=== PATIENT | female | born 1985 | race Caucasian/White ===

== ENCOUNTER 2019-01-03 19:30 | Inpatient (IN) | payer OTHER, SELFPAY ==
[~2019-01-03 19:30] MED LIST: Bupivacaine 0.25% HCL 30 ML VIAL ONE; Lidocaine 2% MPF 10 ML AMP (For Epidural Use) ONE
[2019-01-04] MEDS ORDERED: Carboprost 250 MCG/ML AMP IM PRN (00:56)
[2019-01-04] MEDS ORDERED: Ondansetron PF 4 MG/2 ML Vial IVP PRN ×3 (00:56→20:59)
[2019-01-04] MEDS ORDERED: Ibuprofen 800 MG TAB PO PRN (00:56)
[2019-01-04] MEDS ORDERED: NS / Oxytocin 40 units/1000ml 1,000 ML IV PRN (00:56)
[2019-01-04] MEDS ORDERED: Butorphanol Tartrate 1 MG/ML VIAL SLOW IVP PRN (00:56)
[2019-01-04] MEDS ORDERED: Promethazine HCl 25 MG/ML VIAL IM PRN ×3 (00:56→20:59)
[2019-01-04] MEDS ORDERED: Misoprostol 200 MCG TAB PR PRN (00:56)
[2019-01-04] MEDS ORDERED: hydrALAZINE 20 MG/ML VIAL SLOW IVP PRN (00:56)
[2019-01-04] MEDS ORDERED: HYDROcodone/Acetaminophen 5/325 mg Tablet PO PRN (00:56)
[2019-01-04] MEDS ORDERED: Lidocaine 1% (PF) 30 ML VIAL SC PRN (00:56)
[2019-01-04] MEDS ORDERED: Diphenoxylate HCl/Atropine Tablet PO PRN (00:56)
[2019-01-04] MEDS ORDERED: Methylergonovine 0.2 MG/ML VIAL IM PRN (00:56)
[2019-01-04] MEDS ORDERED: Acetaminophen/Codeine 30-300mg Tablet PO PRN (00:56)
[2019-01-04] MEDS ORDERED: NS w/ Oxytocin 10 units 500 ML IV SCH ×2 (01:15)
[2019-01-04] MEDS: Lactated Ringer's 1,000 ML IV SCH ×3 (01:55→17:23)
[2019-01-04 02:26] VITALS: BMI 51.7
[2019-01-04 02:32] LABS: Hemoglobin 12.5 g/dL (12.0-16.0); Mean Corpuscular HGB CONC 35.6 g/dL (32.0-36.0); Mean Corpuscular Hemoglobin 31.1 pg (27.0-31.0); Mean Corpuscular Volume 87.1 fL (78.0-98.0); Mean Platelet Volume 8.1 fL (7.4-10.4); Platelet Count 321 thou/uL (130-400); RBC Distribution Width 11.2 % (11.5-14.5); Red Blood Cell (RBC) Count 4.03 mill/uL (4.20-5.40)
[2019-01-04] MEDS: Misoprostol 100 MCG TAB PO SCH ×2 (02:32→07:45)
[2019-01-04 03:11] LABS: Hep B Surf Ag Non-Reactive S/CO (NonReactive)
[2019-01-04 04:29] LABS: Syphilis Antibody Nonreactive (Nonreactive); Syphilis Antibody Index 0.05 S/CO (<1.00 Non-Reactive)
[2019-01-04] MEDS ORDERED: Fentanyl 4 mcg/Bup 0.1% Cadd 100 ML ONE (14:30)
[2019-01-04] MEDS ORDERED: Fentanyl 100 MCG/2 ML VIAL ONE (14:42)
[2019-01-04] MEDS ORDERED: Fentanyl 100 MCG/2 ML VIAL EPIDURAL ONE (15:24)
[2019-01-04] MEDS ORDERED: Naloxone HCl 0.4 mg/ml Vial IVP PRN ×4 (15:44→20:59)
[2019-01-04] MEDS ORDERED: Lactated Ringer's 500 ML IV PRN (15:44)
[2019-01-04] MEDS ORDERED: ePHEDrine/0.9% NaCl/PF SYRINGE 50 mg/10 ml SLOW IVP PRN (15:44)
[2019-01-04] MEDS ORDERED: Acetaminophen 325 MG TAB PO PRN (15:44)
[2019-01-04] MEDS ORDERED: diphenhydrAMINE 50 MG/ML VIAL IVP PRN ×2 (15:44→20:59)
[2019-01-04] MEDS ORDERED: Fentanyl 4 mcg/Bupivacaine 0.1% Cassette 100 ML EPIDURAL SCH (15:45)
[2019-01-04] MEDS ORDERED: Communication Order-Pharmacy FS SCH ×2 (15:45→21:00)
[2019-01-04] MEDS ORDERED: Lidocaine 2% 10 ML INJ ONE (20:36)
[2019-01-04] MEDS ORDERED: Oxytocin 10 UNITS/ML VIAL ONE (20:41)
[2019-01-04] MEDS ORDERED: MORPHINE 5 MG/10 ML PF VIAL ONE (20:49)
[2019-01-04] MEDS ORDERED: Dexamethasone 4 mg/ml Vial ONE (20:50)
[2019-01-04] MEDS ORDERED: Ondansetron PF 4 MG/2 ML Vial ONE (20:50)
[2019-01-04] MEDS ORDERED: Ketorolac Tromethamine 30 MG/ML VIAL ONE (20:50)
[2019-01-04 20:55] LABS: Actual Bicarbonate (HCO3v) 20 mEq/L (22-28); Base Excess -5.8 mEq/L (-2.0 to +3.0); pH (Cord, venous) 7.31 (7.32-7.43)
[2019-01-04 20:57] LABS: Actual Bicarbonate (HCO3a) 21.7 mEq/L (22-28); Base Excess (BEa) -8.6 mEq/L (-2.0 to +3.0)
[2019-01-04] MEDS ORDERED: Ketorolac Tromethamine 30 MG/ML VIAL IVP PRN (20:59)
[2019-01-04] MEDS ORDERED: Promethazine HCl 25 MG SUPP PR PRN (20:59)
[2019-01-04] MEDS ORDERED: Meperidine HCl/PF 25 MG/ML VIAL SLOW IVP PRN (20:59)
[2019-01-04] MEDS ORDERED: L&D-Morphine 4 MG/ML VIAL SLOW IVP PRN (20:59)
[2019-01-04] MEDS ORDERED: Naloxone HCl 0.4 mg/ml Vial IV PRN (20:59)
[2019-01-04] MEDS ORDERED: Ondansetron HCl/PF 4 MG/2 ML Vial IVP PRN (20:59)
[2019-01-04] MEDS ORDERED: HYDROmorphone 2 MG/ML VIAL SLOW IVP PRN (20:59)
--- NOTE | 2019-01-04 21:02 | PDOC.EVN ---
Event Note - Event Note Event Note: To room for evaluation of heart rate deceleration. Patient noted to be 10 /100/+2 in incomplete breech presentation. Patient counseled on proceeding with breech vaginal delivery vs emergent section. Upon arrival to OR, fetus at +4 station and the decision was made to proceed with breech vaginal delivery. See delivery note for full details.
--- NOTE | 2019-01-04 21:04 | PDOC.OPDEL ---
OB Operative/Delivery Note Delivery Dr/Surgeon: Yasir Assist: Jose Francisco Pre-Delivery Diagnosis: medically indicated induction Procedure/Post Delivery Dx: other (Breech Vaginal Delivery) Weeks gestation: 37 Anesthesia: epidural - Findings A Sex: male Weight: 6 lb 1 oz - 1 min: 6 - 5 min: 8 - Additional Findings/Plan Placenta delivered: spontaneous Repaired Obstetrical Laceration: 2nd degree Estimated blood loss: 100 Compilations/Other Findings: Upon arrival to OR, fetus noted to be +4 station and delivery imminent. Decision was made to proceed with assisted breech vaginal delivery. With maternal expulsive efforts, breech was delivered, followed by the lower extremities after medial sweep of each leg. Maternal expulsive efforts continued until the axillae were visible. Dr. Felton assisted in supporting the body and the infant was rotated to 90 degrees. The right arm was swept out of the vagina without difficulty. The was then rotated 180 degrees and the left arm was swept out of the vagina without difficulty. The was rotated 90 degrees with the back anterior and the head was flexed using the Mauriceau maneuver and delivered. The spontaneously cried and the nose and mouth were suctioned with bulb suction. The cord was clamped and cut and the infant was handed to the awaiting NICU team. Cord gases were sent. Mom and baby doing well. Post delivery plan: routine recovery
[2019-01-05] MEDS ORDERED: Promethazine HCl 25 MG/ML VIAL IM PRN (00:01)
[2019-01-05] MEDS ORDERED: Adacel (T-DAP) 0.5 ML SYRINGE IM ONE (00:01)
[2019-01-05] MEDS ORDERED: Milk Of Magnesia 30 ML UDCUP PO PRN (00:01)
[2019-01-05] MEDS ORDERED: Bisacodyl 10 MG SUPP PR PRN (00:01)
[2019-01-05] MEDS ORDERED: NS / Oxytocin 40 units/1000ml 1,000 ML IV SCH (00:01)
[2019-01-05] MEDS ORDERED: diphenhydrAMINE 25 MG CAP PO PRN (00:01)
[2019-01-05] MEDS ORDERED: Benzocaine-Menthol 82.5 ML CAN TOP PRN (00:01)
[2019-01-05] MEDS ORDERED: HYDROcodone/Acetaminophen 5/325 mg Tablet PO PRN (00:01)
[2019-01-05] MEDS ORDERED: hydrALAZINE 20 MG/ML VIAL SLOW IVP PRN (00:01)
[2019-01-05] MEDS ORDERED: Ondansetron PF 4 MG/2 ML Vial IVP PRN (00:01)
[2019-01-05] MEDS: Misoprostol 100 MCG TAB PO SCH (00:15)
[2019-01-05] MEDS: Ibuprofen 800 MG TAB PO SCH ×3 (00:15→18:17)
[2019-01-05 06:45] LABS: Hemoglobin 11.8 g/dL (12.0-16.0); Mean Corpuscular HGB CONC 34.7 g/dL (32.0-36.0); Mean Corpuscular Hemoglobin 30.6 pg (27.0-31.0); Mean Corpuscular Volume 88.2 fL (78.0-98.0); Mean Platelet Volume 8.1 fL (7.4-10.4); Platelet Count 296 thou/uL (130-400); RBC Distribution Width 10.9 % (11.5-14.5); Red Blood Cell (RBC) Count 3.85 mill/uL (4.20-5.40); White Blood Cell (WBC) Count 15.2 thou/uL (4.8-10.8)
[2019-01-05] MEDS: Ferrous Sulfate 325 MG TAB PO SCH ×2 (09:48→18:17)
[2019-01-05] MEDS: Prenatal Vitamin 1 TAB PO SCH (09:49)
[2019-01-05] MEDS: Docusate Calcium (SURFAK) 240 MG CAP PO SCH ×2 (09:49→21:25)
[2019-01-06] MEDS: Ibuprofen 800 MG TAB PO SCH ×3 (00:09→16:00)
[2019-01-06] MEDS: HYDROcodone/Acetaminophen 5/325 mg Tablet PO PRN ×2 (05:47→11:27)
[2019-01-06] MEDS ORDERED: Ondansetron ODT 4 MG TAB PO PRN (06:06)
[2019-01-06] MEDS: Prenatal Vitamin 1 TAB PO SCH (08:28)
[2019-01-06] MEDS: Docusate Calcium (SURFAK) 240 MG CAP PO SCH (08:29)
[2019-01-06] MEDS: Ferrous Sulfate 325 MG TAB PO SCH ×2 (08:32→18:36)
[2019-01-06 16:14] VITALS: BP 97/57; TEMP 98.7
== END 2019-01-06 19:10 | disposition home or self-care (01) | DRG 807 ==
LOC: L&D 01-04 00:39 → 3SE 01-05 10:40
PROVIDERS: ADMIT Family Medicine; ATTEND Family Medicine
PROC: 10E0XZZ Delivery of Products of Conception, External Approach (ICD-10-PCS; principal; 2019-01-04)
PROC: 0KQM0ZZ Repair Perineum Muscle, Open Approach (ICD-10-PCS; 2019-01-04)
PROC: 3E033VJ Introduction of Other Hormone into Peripheral Vein, Percutaneous Approach (ICD-10-PCS; 2019-01-04)
DX: O32.1XX0 Maternal care for breech presentation, not applicable or unspecified (principal); Z37.0 Single live birth; O76 Abnormality in fetal heart rate and rhythm complicating labor and delivery; O70.1 Second degree perineal laceration during delivery; Z3A.37 37 weeks gestation of pregnancy
CPT/HCPCS: 36415; 51702; 82805; 85027; 86780; 86850; 86900; 86901; 87340; J1100; J1885; J2001; J2274; J2405; J2590; J3010; J3370; J7050; Q0162; S0020